=== PATIENT | female | born 1975 | race Caucasian/White ===

== ENCOUNTER → 2017-12-09 | Outpatient (CLI) | payer OTHER ==
[2017-12-09 13:06] LABS: Source, Urine Clean Catch
[2017-12-09 15:57] LABS: Bilirubin, Urine Neg (Neg); Blood, Urine Neg (Neg); Glucose Qualitative, Urine 1+ (Neg); Ketones, Urine Neg (Neg); Leukocyte Esterase, Urine Neg (Neg); Nitrite, Urine Neg (Neg); Protein, Urine Neg (Neg); Urobilinogen, Urine NORM (Normal)
[2017-12-09 16:08] LABS: Creatinine, Urine Random 16.8 mg/dL (27.00-270.00); Protein, Urine Random 12.3 mg/dL (0.0-11.9)
[2017-12-09 16:09] LABS: Appearance, Urine Clear (Clear); Color, Urine Yellow (P-Yellow)
[2017-12-09 16:15] LABS: Albumin, Blood 3.2 g/dL (3.4-5.0); Anion Gap 6 mmol/L (6-16); Blood Urea Nitrogen 13 mg/dL (8-24); Bun/Creatinine Ratio 12.1 (12.0-20.0); CO2, Blood 26 mmol/L (21-32); Calcium, Blood 8.9 mg/dL (8.5-10.1); Chloride, Blood 106 mmol/L (98-108); Creatinine, Blood 1.07 mg/dL (0.40-1.00); Glomerular Filtration Rate 59 (60-); Glucose, Blood 85 mg/dL (70-99); Phosphorus, Blood 2.8 mg/dL (2.5-4.9); Potassium, Blood 3.6 mmol/L (3.5-5.5); Sodium, Blood 138 mmol/L (136-145)
[2017-12-10 15:15] LABS: ANA Positive (NEG); Myeloperoxidase Antibody <0.2 AI (<1.0)
[2017-12-10 17:29] LABS: IgA 166 mg/dL (71-397); IgG 1740 mg/dL (758-1612)
[2017-12-10 17:30] LABS: IgM 579 mg/dL (40-230)
[2017-12-10 18:35] LABS: ANCA <1:20
[2017-12-11 12:39] LABS: Albumin 3.3 g/dL (3.5-5.0); Protein, Total 7.8 g/dL (6.2-8.2)
== END ==
LOC: OLS 13:03
PROVIDERS: Internal Medicine
DX: N17.9 Acute kidney failure, unspecified (principal)
CPT/HCPCS: 36415; 80069; 81003; 82570; 82784; 83516; 84156; 84165; 86038; 86225; 86235; 86256; 86334

== ENCOUNTER → 2018-06-23 | Outpatient (CLI) | payer OTHER ==
[2018-06-24 18:29] LABS: Protein, Urine Quantitative 42.3 mg/dL (0.0-11.9)
== END | disposition home or self-care (01) ==
LOC: LAB SHORT 07:30 → LAB 07:30
PROVIDERS: Internal Medicine
DX: N17.9 Acute kidney failure, unspecified (principal)
CPT/HCPCS: 81050; 84156

== ENCOUNTER → 2019-05-16 | Outpatient (CLI) | payer OTHER ==
[2019-05-18 19:11] LABS: Creatinine Urine 31.7 mg/dL (27.00-270.00)
[2019-05-18 19:13] LABS: Microalbumin, Urine Quant. 66.3 mg/L (0.000-20.000)
== END | disposition home or self-care (01) ==
LOC: LAB SHORT 08:00 → LAB 08:00 → LAB FUT 08-14 12:25
PROVIDERS: Internal Medicine Nephrology
DX: N18.3 Chronic kidney disease, stage 3 (moderate) (principal); D63.1 Anemia in chronic kidney disease; N25.81 Secondary hyperparathyroidism of renal origin; E55.9 Vitamin D deficiency, unspecified; E78.00 Pure hypercholesterolemia, unspecified; R76.9 Abnormal immunological finding in serum, unspecified; R94.5 Abnormal results of liver function studies; R94.6 Abnormal results of thyroid function studies
CPT/HCPCS: 81050; 82043; 82570; 84156

== ENCOUNTER 2021-02-09 11:51 | Inpatient (IN) | payer OTHER ==
[~2021-02-09] VITALS: Ht 154.9 cm; Wt 67.4 kg
[2021-02-09 12:37] LABS: pH Blood Venous 7.39 (7.34-7.37)
[2021-02-09 12:38] LABS: Base Excess Venous -1.6 mmol/L; Bicarbonate Venous 23.2 mmol/L (24.0-30.0); PCO2 Venous 38.2 mmHg (38-42); PO2 Venous 59.8 mmHg (38-42)
[2021-02-09 13:48] LABS: Ethanol (Alcohol), Blood, Med <3 mg/dL
[2021-02-09 14:00] LABS: C-REACTIVE PROTEIN, EXT RANGE 5.34 mg/dL (0.000-0.300); Magnesium, Blood 2.4 mg/dL (1.6-2.4); Phosphorus, Blood 3.2 mg/dL (2.5-4.9)
[2021-02-09 14:03] LABS: Troponin I 0.564 ng/mL (0.000-0.040)
[2021-02-09 14:25] LABS: International Normalized Ratio 0.95; Prothrombin Time Results 10.2 Sec (9.7-11.5)
--- NOTE | 2021-02-09 15:07 | NUR ---
Echocardiogram completed.
--- NOTE | 2021-02-09 15:30 | NUR ---
PT ARRIVED TO ROOM THIS AFTERNOON FROM ED AND SETTLED IN TO BED. AT BEDSIDE AT THIS TIME. INFORMED OF THE VISITING HOURS AND CURRENT POLICY AND IS AGREEABLE. DENIES ANY PAIN AT THIS TIME.
[2021-02-09 15:59] LABS: Influenza A, PCR NEGATIVE (NEGATIVE); Influenza B, PCR NEGATIVE (NEGATIVE); Resp Syncytial Virus, PCR NEGATIVE (NEGATIVE); SARS-Cov-2 (COVID-19) PCR, MMC NEGATIVE (NEGATIVE)
[2021-02-09 16:11] LABS: Source, Urine Clean Catch
[2021-02-09 16:17] LABS: Appearance, Urine Clear (Clear); Bilirubin, Urine Neg (Neg); Blood, Urine Neg (Neg); Color, Urine Yellow (P-Yellow); Glucose Qualitative, Urine Neg (Neg); Ketones, Urine Neg (Neg); Leukocyte Esterase, Urine 1+ (Neg); Nitrite, Urine Neg (Neg); Protein, Urine 2+ (Neg); Urobilinogen, Urine NORM (Normal)
[2021-02-09 16:35] LABS: U Amphetamine Screen Not Detected; U Barbituate Screen Not Detected; U Benzodiazapine Screen Not Detected; U Buprenorphine Screen Not Detected; U Cannabinoids Screen Not Detected; U Cocaine Screen Not Detected; U Methadone Screen Not Detected; U Methamphetamine Screen Not Detected; U Opiates Screen Not Detected; U Oxycodone Screen Not Detected; U Phencyclidine Screen Not Detected; U Propoxyphene Screen Not Detected
[2021-02-09 16:36] LABS: Bacteria Rare /hpf; Red Blood Cells, Urine 0-2 /hpf (0-2); Squamous Epithelial Cells Mod /hpf (Few)
--- NOTE | 2021-02-09 17:37 | NUR ---
SHIFT SUMMARY HAS BEEN INDEPENDENT IN ROOM AND HAS CONTINUED TO DENY PAIN. STATES SHE HAS CHRONIC PAIN TO L SHOULDER THAT HAS EASED SINCE COMING TO ROOM. HEPARIN DRIP INFUSING. DR. SARABIA IN TO SEE PT THIS EVENING. PLANS FOR ANGIOGRAM IN A.M.
--- NOTE | 2021-02-09 20:42 | NUR ---
PHYSICIAN COMMUNICATION CONTACTED DRIVER GUARD PHYSICIAN, DR MURPHY, TO NOTIFY HIM THAT THE PATIENT HAD A BLOOD PRESSURE OF 77/44 AND HAD NITRO PASTE ON. DR MURPHY SAID TO REMOVE THE NITRO PASTE AND TO GIVE A 500CC BOLUS, RECHECK BP IN 20 MINUTES AND IF THE BLOOD PRESSURE WAS NOT IMPROVING TO ADD AN ADDITIONAL 500 CC BOLUS.
--- NOTE | 2021-02-09 22:14 | NUR ---
PHYSICIAN COMMUNICATION CONTACTED EDITOR SCHOOL PHOTOGRAPH PHYSICIAN, DR MURPHY, TO NOTIFY HIM THAT AFTER 1,000 ML BOLUS THE PATIENTS BLOOD PRESSURE HAS DROPPED TO 72/49. THAT SHE IS ALERT AND ORIENTED WITH NO COMPLAINTS OF CHEST PAIN OR DIZZINESS. DR MURPHY ORDERED AN ADDITIONAL 1,000 ML BOLUS AND TO INCREASE CONTINUOUS FLUIDS TO A RATE OF 150 ML/HR.
--- NOTE | 2021-02-10 01:34 | NUR ---
PHYSICIAN COMMUNICATION CONTACTED INSURANCE CLAIMS REPRESENTATIVE PHYSICIAN, DR WATKINS, TO NOTIFY HER THAT AFTER TWO 1,000 ML BOLUSES THE PATIENT HAD A SYSTOLIC BP OF 88 AND WAS HAVING MAINTENANCE FLUID RUNNING AT 150 ML/HR. INFORMED HER THAT THE PATIENT HAD NO COMPLAINTS OF CHEST PAIN DIZZINESS OR SHORTNESS OF BREATH. DR WATKINS ORDERED A 1,000 ML BOLUS TO BE RUNN AT 500 ML/HR.
[2021-02-10 03:23] LABS: BASOPHILS ABSOLUTE AUTO 0.07 K/mm3 (0.00-0.23); BASOPHILS PERCENT AUTO 1 % (0-2); EOSINOPHILS PERCENT AUTO 20 % (0-6); Hematocrit 31.2 % (33.0-51.0); IMMATURE GRAN ABSOLUTE AUTO 0.02 K/mm3 (0.00-0.10); IMMATURE GRAN PERCENT AUTO 0 % (0-1); LYMPHOCYTES ABSOLUTE AUTO 2.94 K/mm3 (0.84-5.20); LYMPHOCYTES PERCENT AUTO 29 % (21-46); MONOCYTES ABSOLUTE AUTO 0.85 K/mm3 (0.16-1.47); MONOCYTES PERCENT AUTO 8 % (4-13); Mean Corpuscular HGB 31.9 pg (26.0-34.0); Mean Corpuscular HGB Conc 32.1 g/dL (31.5-36.5); Mean Platelet Volume 10.2 fL (9.1-12.4); NEUTROPHILS ABSOLUTE AUTO 4.31 K/mm3 (1.96-9.15); NEUTROPHILS PERCENT AUTO 42 % (41-73); Platelet Count 222 K/mm3 (150-400); RDW Coefficient Variation 13.2 % (11.7-14.2); RDW Standard Deviation 48.7 fL (35.1-46.3); Red Blood Cell Count 3.13 M/mm3 (3.80-5.20); White Blood Cell Count 10.19 K/mm3 (4.00-11.30)
[2021-02-10 03:26] LABS: Mean Corpuscular Volume 100 fL (80-100)
--- NOTE | 2021-02-10 03:28 | NUR ---
PHYSICIAN COMMUNICATION CONTACTED TECHNICAL INFORMATION SPECIALIST PHYSICIAN, DR WATKINS, NOTIFY HER THAT THE PATIENT WAS CARE HOME THROUGH THE 1000 ML BOLUS AT 500 ML/HR AND HER BLOOD PRESSURE WAS 79/53. THIS RN ALSO NOTIFIED HER THAT THE PATIENT HAS HAD OVER 2500 ML INPUT FROM HER IV AND ONLY 300 ML OUTPUT. PATIENT STILL DENYING ANY SHORTNESS OF BREATH OR CHEST PAIN. DR WATKINS SAID TO RUN THE REST OF THE BOLUS WIDE OPEN AND MONITOR THE PATIENT FOR SYMPTOMS OF HYPOTENSION.
[2021-02-10 03:47] LABS: Alanine Aminotransfer (ALT/SGP 75 U/L (12-78); Albumin, Blood 1.9 g/dL (3.4-5.0); Albumin/Globulin Ratio 0.5 (0.8-1.8); Alk Phos 379 U/L (50-136); Anion Gap 5 mmol/L (6-16); Aspartate Aminotrans (AST/SGOT 86 U/L (12-37); Bilirubin, Total 0.2 mg/dL (0.1-1.0); Blood Urea Nitrogen 17 mg/dL (8-24); CHOL/HDL RATIO 5.8; CO2, Blood 20 mmol/L (21-32); Calcium, Blood 6.8 mg/dL (8.5-10.1); Chloride, Blood 116 mmol/L (98-108); Cholesterol 134 mg/dL (50-200); Creatinine, Blood 1.13 mg/dL (0.40-1.00); Globulin, Blood 4.2 g/dL (2.2-4.0); Glomerular Filtration Rate 55 (60-); Glucose, Blood 98 mg/dL (70-99); HDL Cholesterol 23 mg/dL (>39); LDL/HDL RATIO 3.5; Low Density Lipoprotein Chol 82 mg/dL (0-110); Potassium, Blood 4.1 mmol/L (3.5-5.5); Sodium, Blood 141 mmol/L (136-145); Total Protein, Blood 6.1 g/dL (6.4-8.2); Triglycerides 147 mg/dL (30-160); Troponin I 0.466 ng/mL (0.000-0.040); Very Low Density Lipoprot Chol 29 mg/dL (6-32)
--- NOTE | 2021-02-10 04:52 | NUR ---
PHYSICIAN COMMUNICATION CONTACTED DENTAL ASSISTANT MEDICAL ASSISTANT PHYSICIAN, DR WATKINS, TO NOTIFY HER THAT THE PATIENT'S BLOOD PRESSURE WAS STILL 79/58 AND THAT SHE WAS NOW REPORTING CHEST PAIN WITH THE PAIN RADIATING DOWN HER LEFT ARM. DR WATKINS SAID TO MAINTAIN THE IV FLUIDS AT 150 ML/HR AND TO CONTINUE TO MONITOR THE PATIENT SHE IS GOING TO HAVE AN ANGIOGRAM THIS MORNING.
--- NOTE | 2021-02-10 07:10 | NUR ---
SHIFT SUMMARY PATIENT ALERT AND ORIENTED. PATIENT WAS HAVING BLOOD PRESSURES IN THE 70'S AND 80'S SYSTOLICALLY DESPITE HAVING FLUID BOLUSES. PATIENT'S NITRO PATCH AND BLOOD PRESSURE MEDICATION HELD A RESTULT. IVS PATENT AND FLUSHED. BED IN LOWEST POSITION WITH WHEELS LOCKED. CALL LIGHT WITHIN REACH. REPORT GIVEN TO ONCOMING RN.
--- NOTE | 2021-02-10 07:57 | NUR ---
TRANSFER PT ON HER WAY TO THE HEART [facility]ENTER NOW, EDUCATED PT ABOUT WHAT TO EXPECT DURING HEART CATH, WILL TRANSFER BELONGINGS TO NEW ROOM ONCE ASSIGNED
--- NOTE | 2021-02-10 08:49 | NUR ---
TRANSFER REPORT CALLED TO CARON HAYWOOD IN ICU, PT GOING TO BE TRANSFERRED TO ICU 14, BELONGINGS BROUGHT DOWN BY THE IT PROGRAMMER, PT WENT TO THE HEART CENTER WITH THE TELEMETRY BOX
--- NOTE | 2021-02-10 09:12 | NUR ---
ASSUMED CARE: REPORT RECIEVED FROM OSCAR FROM MEDICAL AND KATIE FROM [facility]PERATIONS [facility]. PT COMES TO UNIT WITH TR BAND TO RIGHT WRIST, 9CC IN, NO SIGNS OF BRUISING OR HEMATOMA. INSTRUCTED PT ON MOVEMENT PRECAUTIONS. ARM BOARD IN PLACE. PT DENIES CHEST PAIN AT THIS TIME. NSR ON TELE. CALL LIGHT IN REACH. NO ACUTE NEEDS OR CONCERNS AT THIS TIME.
--- NOTE | 2021-02-10 11:23 | NUR ---
PHARMACY CALLED REGARDING HEPARIN ORDERS. CALL TO DR SARABIA WHO INSTRUCTS TO DC HEPARIN AND TO HAVE HER FOLLOW UP WITH CARDIOLOGY IN 2 WEEKS. MADE ISTRATE AWARE AND HE WILL BE COMING TO SEE PT SHORTLY. TR BAND REMAINS WITHOUT HEMATOMA. 4CC REMOVED FROM BAND
[2021-02-10] MEDS ORDERED: Acetaminophen325 M1 PO (13:22)
[2021-02-10] MEDS ORDERED: Aspir 8181 MG PO (13:23)
[2021-02-10] MEDS ORDERED: ATOR80 PO (13:23)
[2021-02-10] MEDS ORDERED: METO25 PO (13:23)
[2021-02-10] MEDS ORDERED: ONDA4ODT MM (13:24)
[2021-02-10] MEDS ORDERED: NITR.4SL SL (13:24)
--- NOTE | 2021-02-10 16:00 | NUR ---
MITCHELL GUZMÁN'Lesli WNL. EDUCATION GIVEN ABOUT WRIST MOVEMENT. MEDICATIONS FAXED TO [facility] [address]. PT'S CAME TO COLLECT HER AND SHE WAS ESCORTED OUT VIA WHEEL CHAIR TO CAR. NO FURTHER QUESTIONS OR CONCERNS.
== END 2021-02-10 16:30 | disposition home or self-care (01) | DRG 281 ==
LOC: ER 11:51 → MEDS 13:53 → ICUW 02-10 09:04
PROVIDERS: Emergency Medicine; Nurse Practitioner Acute Care; ADMIT Family Medicine
PROC: 4A023N7 Measurement of Cardiac Sampling and Pressure, Left Heart, Percutaneous Approach (ICD-10-PCS; principal; 2021-02-10)
PROC: B2111ZZ Fluoroscopy of Multiple Coronary Arteries using Low Osmolar Contrast (ICD-10-PCS; 2021-02-10)
DX: I21.4 Non-ST elevation (NSTEMI) myocardial infarction (principal); E87.1 Hypo-osmolality and hyponatremia; M35.9 Systemic involvement of connective tissue, unspecified; E78.5 Hyperlipidemia, unspecified; I12.9 Hypertensive chronic kidney disease with stage 1 through stage 4 chronic kidney disease, or unspecified chronic kidney disease; F17.200 Nicotine dependence, unspecified, uncomplicated; I25.10 Atherosclerotic heart disease of native coronary artery without angina pectoris; D72.829 Elevated white blood cell count, unspecified; Z20.822 Contact with and (suspected) exposure to COVID-19; N18.30 Chronic kidney disease, stage 3 unspecified; Z98.51 Tubal ligation status; Z88.2 Allergy status to sulfonamides; Z90.49 Acquired absence of other specified parts of digestive tract; Z71.6 Tobacco abuse counseling
CPT/HCPCS: 0241U; 36415; 71045; 76937; 80053; 80061; 81001; 82803; 82977; 83036; 83735; 83880; 84100; 84145; 84484; 85025; 85347; 85610; 85651; 85730; 86140; 93005; 93010; 93306; 93454; 99152; 99285-25; A9270; C1769; C1894; G0480; J1644; J2250; J3010; J7030; J7040; Q9967